=== PATIENT | female | born 1985 | race African-American/Black ===

== ENCOUNTER → 2016-09-08 | Outpatient (REF) | payer OTHER ==
[2016-09-08 14:31] LABS: CALCIUM OXALATE CRYSTALS SMALL
== END ==
LOC: M SMT 13:12
PROVIDERS: ATTEND Nurse Practitioner Women's Health
DX: N32.89 Other specified disorders of bladder (principal)

== ENCOUNTER 2018-10-20 18:54 | Emergency (ER) | payer OTHER ==
[~2018-10-20] VITALS: Ht 165.1 cm; Wt 70.5 kg
[2018-10-20 18:54] VITALS: BP 114/60
== END 2018-10-20 19:46 | disposition home or self-care (01) ==
LOC: M ED 18:54
DX: S61.101A Unspecified open wound of right thumb with damage to nail, initial encounter (principal); W45.8XXA Other foreign body or object entering through skin, initial encounter; Y92.099 Unspecified place in other non-institutional residence as the place of occurrence of the external cause; Y93.89 Activity, other specified; Y99.9 Unspecified external cause status

== ENCOUNTER 2019-02-13 12:05 | Day surgery (SDC) | payer OTHER ==
[~2019-02-13] VITALS: Ht 165.1 cm; Wt 72.5 kg
[~2019-02-13 12:05] MED LIST: LIDOCAINE 1% MDV 20ML VIAL SQ PRN; LR 1,000 ML IV ONE
[2019-02-13 12:36] LABS: HEMATOCRIT 33.8 % (36.0-47.0); HEMOGLOBIN 10.9 g/dl (12.0-15.5); MEAN CORPUSCULAR HEMOGLOBIN 29.9 pg (27.0-33.0); MEAN CORPUSCULAR HGB CONC 32.2 g/dl (32.0-36.5); MEAN CORPUSCULAR VOLUME 92.9 fl (80.0-96.0); PLATELET COUNT, AUTOMATED 230 10^3/uL (150-450); RED BLOOD COUNT 3.64 10^6/uL (4.00-5.40); WHITE BLOOD COUNT 5.4 10^3/uL (4.0-10.0)
[2019-02-13 13:05] LABS: HCG, SERUM QUALITATIVE NEGATIVE (NEGATIVE)
[2019-02-13] MEDS ORDERED: IODINE STRONG SOLN 15 ML BTL As Ordered ONE (15:05)
[2019-02-13] MEDS ORDERED: LIDOCAINE W/EPINEPHRINE 1% 20ML VIAL As Ordered ONE (15:05)
[2019-02-13] MEDS ORDERED: ESTROGENS VAGINAL CREAM 30GM As Ordered ONE (15:40)
[2019-02-13] MEDS ORDERED: MIDAZOLAM INJ 2 MG/2 ML VIAL (J2250) As Ordered ONE (15:49)
[2019-02-13] MEDS ORDERED: ONDANSETRON 4MG/2ML VIAL (J2405) As Ordered ONE (15:49)
[2019-02-13] MEDS ORDERED: LIDOCAINE 2% INJ 100 MG/5 ML SDV (FOR ANES.) As Ordered ONE (15:49)
[2019-02-13] MEDS ORDERED: dexameTHASONE 4 MG/ML 1ML VIAL (J1100) As Ordered ONE (15:49)
[2019-02-13] MEDS ORDERED: KETOROLAC 60 MG/2 ML VIAL (J1885) As Ordered ONE (15:49)
[2019-02-13] MEDS ORDERED: fentaNYL 100 MCG/2 ML INJECTION (J3010) As Ordered ONE (15:49)
[2019-02-13] MEDS ORDERED: PROPOFOL 200 MG/20 ML VIAL As Ordered ONE (15:49)
[2019-02-13] MEDS ORDERED: fentaNYL 100 MCG/2 ML INJECTION (J3010) IV PRN (16:15)
[2019-02-13] MEDS ORDERED: LR 1,000 ML IV SCH (16:15)
[2019-02-13] MEDS ORDERED: ONDANSETRON 4MG/2ML VIAL (J2405) IV PRN (16:15)
[2019-02-13] MEDS ORDERED: PERCOCET 5MG/325MG TAB PO PRN ×2 (16:15→16:30)
[2019-02-13] MEDS ORDERED: KETOROLAC 30 MG/ML VIAL (J1885) IV PRN (16:30)
[2019-02-13 18:15] VITALS: BP 113/70
[2019-02-13] MEDS ORDERED: ESTROGENS VAGINAL CREAM 30GM PV SCH (21:00)
--- NOTE | 2019-02-14 18:29 | RO ---
DATE OF PROCEDURE: 02/13/2019 PREPROCEDURE DIAGNOSIS: Symptomatic right labia majora skin tag. POSTPROCEDURE DIAGNOSIS: Symptomatic right labia major skin tag. PROCEDURE: Right labial skin tag excision. SURGEON: Dr. Jan Spann FURNACE CLEANER: None. ANESTHESIA: General. FLUIDS: 300 mL Lactated Ringer's. URINE OUTPUT: 0. ESTIMATED BLOOD LOSS: 1 mL. COMPLICATIONS: None. ANTIBIOTICS: None indicated. DESCRIPTION OF PROCEDURE: Detailed procedure description: The risks, benefits, indications and alternatives of the procedure were reviewed with the patient, and informed consent was obtained. The patient was taken to the operating room where general anesthesia was obtained without difficulty. An exam under anesthesia was then performed and was significant for a 1 cm size right labia majora skin tag as previously was known. The patient was then prepped and draped in the usual sterile fashion. She was placed in a lithotomy position. A surgical time-out was then performed, and the patient's identity and planned procedure were verified with the operative team. The patient's right labia majora was inspected and the superficial 1 cm size skin tag was isolated. Lidocaine was then injected at the base of the skin tag. The skin tag was then excised with a scalpel. A small amount of bleeding was controlled with Bovie electrocautery. The surrounding skin edges from the skin tag were then reapproximated with #3-0 Vicryl suture in an interrupted fashion, and there was excellent hemostasis. The incision and suture site was then covered with Premarin cream. The patient tolerated the procedure well. All instruments were confirmed to have been removed from the operative field. The sponge, instrument and needle counts were correct times three at the case conclusion. The patient was taken to the recovery room in stable condition. M[facility] HOSPITALHeron
== END 2019-02-13 18:30 | disposition home or self-care (01) ==
LOC: M SDC 12:05
PROVIDERS: ATTEND Obstetrics & Gynecology
DX: L91.8 Other hypertrophic disorders of the skin (principal)
CPT/HCPCS: 11200; 36415; 84703; 85027; 88304; J1100; J1885; J2250; J2405; J3010